=== PATIENT | female | born 1990 | race Caucasian/White ===

== ENCOUNTER 2017-08-14 21:10 | Emergency (ER) | payer MEDICAID ==
[~2017-08-14] VITALS: Wt 61.5 kg
--- NOTE | 2017-08-15 00:33 | ERD ---
ER Documentation Chief Complaint Chief Complaint abd/back pain x 1 hour, states 4 months , denies vb HPI 26-year-old female presenting with a chief complaint of 1 day of lower abdominal pain and back pain. Patient is and currently 16 weeks by date. States that there is been a decrease in movement/quickening. Denies vaginal bleeding, fever, dysuria, nausea, vomiting, diarrhea, vaginal discharge, or foul odor. Patient has no other complaints and describes no other associated manifestations. Nursing notes have been reviewed and are consistent with history given. ROS All systems reviewed and are negative except as per history of present illness. Allergies Allergies: Coded Allergies: No Known Drug Allergies (Verified Allergy, Unknown, 08/14/17) PMhx/Soc Medical and Surgical Hx: pt denies Medical Hx, pt denies Surgical Hx Hx Alcohol Use: No Hx Substance Use: No Hx Tobacco Use: No Smoking Status: Never smoker Physical Exam Vitals Vital Signs Date Time Temp Pulse Resp B/P Pulse Ox O2 Delivery O2 Flow Rate FiO2 08/14/17 21:23 98.7 93 20 103/68 99 Physical Exam Const: Healthy-appearing. Well-nourished. Well-developed. No acute distress. Abd: Fundal height within normal limits. Soft, non tender, non distended. No guarding, masses. Normal bowel sounds. No McBurney's point tenderness. Head: Normocephalic, Atraumatic. Eyes: Non-injected; No scleral erythema, discharge or foreign body. EOMI and DELIO bilaterally. Ears: Normal External Ears, EACs clear, TM normal bilaterally without erythema. Nose: Normal nose without discharge, septal deviation, or sinus tenderness. Oral: No oral edema visualized. Mucous membranes moist and pink. Neck: No cervical lymphadenopathy, masses or goiter palpated. Trachea midline. Supple ~ No meningismus. Pulm: Good air movement in upper and lower respiratory tracts. No dyspnea, stridor, tripoding or drooling. Clear to auscultation bilaterally. Cardio: Regular rate and rhythm; No murmurs, gallops or rubs auscultated. No JVD grossly observed. Radial and posterior tibial pulses 2+ bilaterally. No cyanosis. Capillary refill less than 2 seconds. MS: Normal motor strength, normal tone with gross examination. Skin: No petechiae or rashes. No ulcer, induration, jaundice. Good turgor. Back: No midline, flank or CVA tenderness. Ext: No cyanosis, edema or palpable cord. Normal movement of all extremities grossly observed. Neur: Awake, alert and oriented x3. Neurovascularly intact bilaterally. Psych: Normal Mood and Affect. Result Diagram: 08/15/17 0045 Results 24 hrs Laboratory Tests Test 08/15/17 00:45 White Blood Count 10.510^3/ul Red Blood Count 3.9310^6/ul Hemoglobin 12.2g/dl Hematocrit 35.5% Mean Corpuscular Volume 90.3fl Mean Corpuscular Hemoglobin 31.0pg Mean Corpuscular Hemoglobin Concent 34.4g/dl Red Cell Distribution Width 12.6% Platelet Count 18671^3/UL Mean Platelet Volume 10.8fl Neutrophils % 66.8% Lymphocytes % 22.8% Monocytes % 4.5% Eosinophils % 4.9% Basophils % 0.4% Nucleated Red Blood Cells % 0.0/100WBC Neutrophils # 7.010^3/ul Lymphocytes # 2.410^3/ul Monocytes # 0.510^3/ul Eosinophils # 0.510^3/ul Basophils # 0.010^3/ul Nucleated Red Blood Cells # 0.010^3/ul Urine Color YELLOW Urine Clarity CLEAR Urine pH 6.0 Urine Specific [place] 1.012 Urine Ketones TRACEmg/dL Urine Nitrite NEGATIVEmg/dL Urine Bilirubin NEGATIVEmg/dL Urine Urobilinogen NEGATIVEmg/dL Urine Leukocyte Esterase NEGATIVELeu/ul Urine Hemoglobin NEGATIVEmg/dL Urine Glucose NEGATIVEmg/dL Urine Total Protein NEGATIVEmg/dl Beta HCG, Quantitative 43274.0mIU/ml Procedures/MDM Patient is being evaluated and worked up for pelvic pain as described in the history and physical exam. My current differential diagnosis includes, but is not limited to, the following: pelvic inflammatory disease, nephrolithiasis, urinary tract infection, spontaneous , demise, and vaginitis, among others. The workup included CBC, CMP, type and screen, quantitative beta-hCG, urinalysis , urine culture, and an US. Labs were unremarkable. Urine was within normal limits. The US was read by the radiologist and given the following impression: Single viable intrauterine gestation of approximately 15 weeks 5 days. The estimated date of delivery is February 01, 2018. At this time, I have little suspicion for , ectopic placenta previa, infection, blood vessel rupture, or PPROM. The current most likely diagnosis is pelvic pain of unknown etiology in the second trimester. I have spoke with the patient regarding their condition and future management. They have verbally responded that they understand their status and treatment plan. The patients vitals are stable, and their current condition is appropriate for discharge. The patient will be given discharge instructions with return precautions. Departure Diagnosis: Primary Impression: Normal in second trimester Condition: Stable Additional Instructions: Follow up with your PCP within the next 1-3 days for a more thorough evaluation and a possible referral to a specialist. Return the the emergency department immediately if symptoms worsen or change. If you have any questions regarding medications, ask your pharmacist or us before you leave. If any adverse reactions occur while taking your medications, discontinue the treatment and return to the emergency department immediately. Take your medications as directed, and complete the entire course of treatment. MELANY WILLETT PA-C Aug 15, 2017 00:33 MELANY WILLETT PA-C Aug 15, 2017 00:33
[2017-08-15 01:04] LABS: BASOPHILS % 0.4 % (0.0-2.0); EOSINOPHILS # 0.5 10^3/ul (0.0-0.5); EOSINOPHILS % 4.9 % (0.0-7.0); HEMATOCRIT 35.5 % (37.0-47.0); HEMOGLOBIN 12.2 g/dl (12.0-16.0); LYMPHOCYTES # 2.4 10^3/ul (0.8-2.9); LYMPHOCYTES % 22.8 % (15.0-51.0); MEAN CORPUSCULAR HGB CONC 34.4 g/dl (32.0-37.0); MEAN CORPUSCULAR VOLUME 90.3 fl (82.0-101.0); MEAN PLATELET VOLUME 10.8 fl (7.4-10.4); MONOCYTE # 0.5 10^3/ul (0.3-0.9); MONOCYTES % 4.5 % (0.0-11.0); NEUTROPHILS % 66.8 % (39.0-77.0); PLATELET COUNT 200 10^3/UL (140-415); RED BLOOD COUNT 3.93 10^6/ul (4.20-5.40); RED CELL DISTRIBUTION WIDTH 12.6 % (11.5-14.5); WHITE BLOOD COUNT 10.5 10^3/ul (4.8-10.8)
[2017-08-15 01:16] LABS: ADD UMIC NO; UR ASCORBIC ACID NEGATIVE (NEGATIVE); UR BILIRUBIN (Dip) NEGATIVE (NEGATIVE); UR BLOOD (Dip) NEGATIVE (NEGATIVE); UR CLARITY CLEAR (CLEAR); UR COLOR YELLOW (YELLOW); UR GLUCOSE (Dip) NEGATIVE (NEGATIVE); UR KETONES (Dip) TRACE mg/dL (NEGATIVE); UR LEUKOCYTE ESTERASE (Dip) NEGATIVE Leu/ul (NEGATIVE); UR NITRITE (Dip) NEGATIVE (NEGATIVE); UR SPECIFIC GRAVITY (Dip) 1.012 (1.003-1.030); UR TOTAL PROTEIN (Dip) NEGATIVE (NEGATIVE); UR UROBILINOGEN (Dip) NEGATIVE (NEGATIVE)
--- NOTE | 2017-08-15 02:05 | RADRPT ---
PROCEDURE: ULTRASOUND OBSTETRICAL CLINICAL INDICATION: 26-year-old female with pelvic pain. TECHNIQUE: Multiple sonographic images of the pelvis were obtained. The images were reviewed on a PACS workstation. COMPARISON: No prior studies are available for comparison. FINDINGS: The cervix is not well visualized. There is a single viable intrauterine gestation. Cardiac activit y is present with 143 beats per minute. There is a vertex presentation. Measurements were made in or [place] to determine age. The results are as follows: BPD = 3.18 cm, HC = 11.56 cm, AC = 9.27 cm, FL = 1.84 cm. This yields and estimated gestational age of approximately 15 weeks 5 days. The estimated date of delivery is February 01, 2018. The EFW = 125 +/- 19 g. The GP is less than 3%. The placenta is anterior grade 1. There is no evidence for an abruption or placenta previa. There is an adequate amount of amniotic fluid with the maximal vertical pocket measuring 3.8 cm. IMPRESSION: Single viable intrauterine gestation of approximately 15 weeks 5 days. The estimated date of delive ry is February 01, 2018. .Usman Black MD, Date Time Electronically viewed and signed by .Usman Black MD, on 08/15/2017 02:05 .Deniz/
== END 2017-08-15 03:01 | disposition home or self-care (01) ==
LOC: FTE 21:10
DX: O26.892 Other specified pregnancy related conditions, second trimester (principal); R10.2 Pelvic and perineal pain; Z3A.15 15 weeks gestation of pregnancy
CPT/HCPCS: 36415; 76805; 81003; 84702; 85025; 86900; 86901; Z7502

== ENCOUNTER 2018-01-25 01:15 | Inpatient (IN) | END 2018-01-26 15:33 | disposition home or self-care (01) | DRG 780 ==

== ENCOUNTER 2018-01-29 11:55 | Outpatient (CLI) | END 2018-01-29 13:15 | disposition home or self-care (01) ==

== ENCOUNTER 2018-02-02 10:53 | Outpatient (CLI) | END 2018-02-02 13:50 | disposition home or self-care (01) ==

== ENCOUNTER 2018-02-03 20:30 | Inpatient (IN) | END 2018-02-05 14:10 | disposition home or self-care (01) | DRG 767 ==